=== PATIENT | male | born 1955 | race Caucasian/White ===

== ENCOUNTER 2016-06-10 05:28 | Inpatient (IN) | payer MEDICARE, MEDICAID ==
--- NOTE | 2016-06-06 08:17 | PCM.HPSURG ---
Subjective Date of Service: May 28, 2016 Referring Provider: Admitting Physician: Primary Care Physician: Carlo Arredondo MD Attending Physician: Eren Zuleta MD Chief Complaint SEE BELOW History of Present Illness Patient: Dalton Ortiz Date of : 1955 Visit Type: Pre Op Visit Date: 05/28/2016 01:00 PM This 60 year old male presents for Preop C5-7 ACDF, Allograft and & Plating. History of Present Illness: 1. Preop C5-7 ACDF, Allograft, & Plating Dalton Dodson is a 60 year old male referred by Primary Care Provider (PCP) Dr. Carlo Jones M.D. chronic pain management through [facility] ([facility] ) who presents today's date 05/28/2016 for a preoperative type of appointment concerning the decision for surgery involving C5-6, & C6-7 anterior cervical discectomy and fusion, with allograft bone 2, and present anterior cervical plating from C5-7 secondary to a diagnosis of cervical spondylosis with myelopathy & radiculopathy with related complaints of severe, intractable, and debilitating referred headache, neck spasm to the back & pain radiating to the bilateral shoulders & extremities with numbness, paresthesias, & dysesthesias & difficulty with bladder spasticity. The patient was last seen by Dr. Eren Zuleta M.D. on 03/27/2016 documenting a history sleep apnea without current CPAP use and chronic pain management through [facility] , including mild symptoms of cervical myelopathy. He is a poor historian. He reports episodes of neck pain over the past 30 years, but more severe constant pain for 2-3 months. He also reports episodes of pain between the shoulder blades, episodes of diffuse tired heavy ache in the right arm, dropping things, and jitteriness in the hands over the past 2-3 years. He also reports constant low back over the past 30 years with gradual progression. He reports a heavy tired ache in both legs, with difuse numbness and paresthesias, and a jitteriness in his legs. Cervical extension can provoke neck and low back pain. A cervical MRI showed spondylosis with cord compression at C5-6, C6-7 and small disk protrusions at C3-4 and C4-5 with a question of some subtle cord flattening. He also reports shoulder surgery on the right 2 times, and on the left 3 times. He has bilateral shoulder pain, greater on the right that can be provoked by arm movement, and this can also cause arm pain, numbness, paresthesias. He alos had bilateral CTR 2005, that relieved paresthesia in his hands. He has had recurrence of the hand paresthesias over the past 1-2 years. Although he has evidence of residual mild slowing of median nerve at the wrist bilaterally on NCV, he reports that he is not having paresthesias in his hands. He was noted to have chronic changes of radiculopathy on EMGs, bilaterally in the C7 distribution and the left in C6. He reported a recent fall in January 2016, missed last step going down stairs, fell forward hitting right knee and right arm and struck hit face, with upper lip laceration, but no loss of consciousness. The accident caused a flair up of local neck and low back pain. He was seen by his primary care physician for this injury and a Head CT was obtained that was negative. He is also being evaluated for a persistent cough which has improved and reported a chest xray. He was evaluated with a cervical and lumbar myelo/CT that demonstrated cord compression primarily at C5-6 and C6-7. The cervical spondylosis at C3-4 and C4-5 did not cause cord compression on the myelo/CT. The plan is to limit surgery to an ACDF C5-7. Dr. Eren Zuleta M.D. & patient discussed all the risks and benefits associated with the procedure as well as reasonable expectations with respect surgical outcomes & patient elected to proceed with surgery as planned. The patient denies any related complete or acute loss of control of bowel or bladder function, saddle paresthesia or anesthesia. The patient has a reported pertinent past medical, surgical, family, & social history of shoulder surgery, carpal tunnel release, obesity, obstructive sleep apnea without available CPAP, history of head trauma, possible unverified history of stroke, peripheral edema, chronic constipation, unrelated reported bladder dysfunction, frequent headaches, depression & anxiety with no other then the above known positive history &/or review of all other organ systems. The patient's related complaints have been a serious detriment to their happiness and activities of daily living. Having failed conservative treatment the patient presents today for their decision for surgery appointment involving C5-6 & C6-7 anterior cervical discectomy and fusion, with allograft bone 2, & anterior cervical plating from C5-7 for treatment of cervical spondylosis with myelopathy & radiculopathy; related to severe, intractable, and debilitating referred headache, neck spasm to the back & pain radiating to the bilateral shoulders & extremities with numbness, paresthesias, & dysesthesias & difficulty with bladder spasticity. The procedure is scheduled to be performed by Dr. Eren Zuleta M.D. on 06/10/2016. PREOPERATIVE NOTE: Discussed patient's perioperative care with attending Neurosurgeon Dr. Zuleta requiring postoperative supervision for 24-72 hours at home & the patient must also obtain a working CPAP to use as directed postoperatively in order for us to proceed with surgery as planned on 2016. [facility] Dr. Catrachito Wilson M.D. agreed to manage the patient's postoperative pain & spasm; but we will have the patient one prescription for diazepam at discharge. Problem List: Problem Description BPH (benign prostatic hypertrophy) with urinary obstruction Other obstructive and reflux uropathy Medical/Surgical/Interim History Reviewed, no change. Last detailed document date:05/28/2016. Family History: Reviewed, no changes. Last detailed document date:05/28/2016. Social History: Tobacco use reviewed. Reviewed, no changes. Last detailed document date: 05/28/2016. Allergies: Ingredient Reaction Medication Name Comment MELOXICAM renal malfunction LISINOPRIL Cough Reviewed, no changes. Review of Systems System Neg/Pos Details ENMT Negative Hearing loss. Cardio Negative Chest pain, irregular heartbeat/palpitations, leg swelling and pacemaker. Integumentary Negative Mrsa and rash. Constitutional Negative Chills and fever. Negative Dysuria, urge incontinence and urinary incontinence. Psych Negative Anxiety and depression. Respiratory Negative Dyspnea, apnea and wheezing. Neuro Negative Dizziness, headache and seizures. GI Negative Abdominal pain, constipation, diarrhea, nausea and vomiting. Eyes Negative Double vision and vision loss. MS Negative Back pain, bone/joint symptoms and muscle weakness. Endocrine Negative Weight gain and weight loss. Raheem/Lymph Negative Blood clots. Vital Signs Height Time ft in cm Last Measured Height Position % 12:46 PM 5.0 7.00 170.18 05/28/2016 Weight/BSA/BMI Time lb oz kg Context % BMI kg/m2 BSA m2 12:46 PM 274.00 124.284 42.91 Blood Pressure Time BP mm/Hg Position Side Site Method Cuff Size 12:46 PM 132/92 sitting left wrist automatic adult large Temperature/Pulse/Respiration Time Temp F Temp C Temp Site Pulse/min Pattern Resp/ min 12:46 PM 98.2 36.8 temporal 98 regular Pain Scale Time Pain Score Method 12:46 PM 5/10 Numeric Pain Intensity Scale Measured By Time Measured by 12:46 PM Jeannette Cox MA Physical Exam Exam Findings Details Comments WD/WN, male is AO x 3, cooperative & appears to be in NAD w/ language & speech that is intact & fluent. There is no evidence of recent or remote memory impairment. The patient's knowledge is appropriate for age & level of education w/ a pleasant affect & euthymic mood. Ambulates w/ no difficulty. NC/AT, PERRL, EOMI, w/o facial droop, hearing grossly intact, nostrils patent, oral cavity and pharynx normal. Neck supple, w/o LAD or thyromegaly. Heart reveals RRR w/o audible murmurs Lungs CTAB Abdomen is NT/ND decreased ROM of Cervical Spine Neg Spurlings, Positive Hoffmans, right, Neg Lhermittes Neg Tinnels, Neg Phalens, no tenderness over cubital tunnel Motor Strength: 4+/5 senior computer specialist bilaterally, other motor groups 5/5 throughout in UEs and LEs 4+/5 deltoids bilaterally, secondary to pain Sensation Intact in UEs and LEs DTRs, are 2+ in UEs and LEs Bilateral well healed scars on the wrists from carp Neg tinnels bilat No tenderness over the ulnar groove to palpation bilat Assessment/Plan # Detail Type Description 1. Assessment Cervical spondylosis with myelopathy and radiculopathy (M47.12). 2. Assessment Preoperative examination (Z01.818). Patient Plan We including your Attending Surgeon have discussed the risks and benefits associated your scheduled procedure which you have verbally acknowledged understanding including but not limited to the possibility of an outcome that we are unable to predict or was not mentioned. 1. You are scheduled for a C5-6 & C6-C7 anterior cervical discectomy and, with allograft bone 2, & anterior cervical plating from C5-[address] Eren Zuleta M.D. at [facility] on 06/10/2016. 2. Check in time is 7:30 AM. Also please ignore instructions below if told otherwise by your preadmission nurse or if you do not take the medications listed below. 3. Nothing to eat after midnight the night before surgery. You may take all of your "approved" medications with small sips of water. Remember to take your a.m. hypertension medication if it is a beta sebas and ends in "olol. Otherwise ask your doctor if you need to hold your a.m. hypertension medication. 4. No aspirin, ibuprofen, Naprosyn, or other NSAIDs starting 7 days prior to surgery. 5. Please stop Warfarin/Coumadin or other blood thinners such as Plavix, Aggrenox, or Xarelto 7 days prior to your surgical procedure and follow specific instructions from your prescribing provider. 6. Please stop Lovenox bridging in the morning one day prior to procedure. 7. Please stop Suboxone/Buprenorphine at least 4 days prior to procedure. 8. Go to the hospital today to get her preoperative testing done. Take the order form to the surgery desk on the second floor of the hospital, [facility] (main entrance next to the emergency entrance). I will notify you if there is any test results that require further workup prior to surgery. 9. Follow the instructions you were given today, use the cleansing cloths the night before as well as the morning of her surgery. 10. If you are prescribed inhalers, CPAP or BiPAP machines you use at home bring along with you to the hospital. 11. ONLY If you take medications for Diabetes: If you have an insulin pump continue lowest (typically night-time) basal rate into the a.m. If you do not have a pump check h your a.m. blood sugar and hold insulin if BS less than 100. If you are taking long-acting, intermediate acting (NPH) or 70/30 preparation : Take half on day of procedure. If you are taking ultra long-acting insulin such as glargine, Lantus either at night or in the a.m. continue as scheduled ( including day of surgery). If you take short acting regular insulin (insulin not delivered via pump) discontinue on day of procedure. 12. Please call if you have any questions before your surgery: [phone]. Today's instructions/counseling include(s) Pre-operative instructions given to the patient and or legal training representative(s) orally and in writing. 13. Our office will contact you if there are any test results that require further workup prior to surgery. 14. Please make sure that she would have supervision for 1-3 days after surgery and her CPAP will not be able to proceed with surgery. Provider Plan The patient's history and examination as well as radiological findings were reviewed with Dr. Eren Zuleta M.D. and conveyed the patient in detail. The findings are consistent with cervical spondylosis with myelopathy & radiculopathy and are most likely the cause of the patient's severe, intractable , and debilitating referred headache, neck spasm to the back & pain radiating to the bilateral shoulders & extremities with numbness, paresthesias, & dysesthesias & difficulty with bladder spasticity. The patient has failed extensive conservative treatment for this condition. The treatment options were discussed with the patient. The options include attempt to live with the condition, reattempt conservative treatment, try a pain management intervention / injection or consider a surgical intervention. We are not extremely optimistic that further conservative treatment, pain management intervention and/or injection will adequately resolve the patient's symptoms of severe, intractable, and debilitating referred headache, neck spasm to the back & pain radiating to the bilateral shoulders & extremities with numbness, paresthesias, & dysesthesias & difficulty with bladder spasticity. Therefore we recommend C5-6, & C6-7 anterior cervical discectomy and fusion, with allograft bone 2, & anterior cervical plating from C5-7. The patient was provided/offered educational materials pertaining to their diagnosis and the above discussed procedure. We discussed the risks and benefits associated with this surgery. A spine model was used to explain the nature of this type of surgery. The risk of the required anesthesia was also mentioned including but not limited to organ failure such as heart attack, pneumonia and stroke even . The risk of this type of surgery was also mentioned. Including but not limited to an unsuccessful outcome, residual symptoms, odynophagia, dysphasia or sore throat, referred or radiating posterior spinal myofascial inflammatory pain or spasm, post operative instability, instrumentation failure, sensory changes, blood loss, blood clots, wound infection, spinal cord or nerve damage, CSF or lymph leak, damage to neighboring structures such as the recurrent laryngeal nerve, perforation of the esophagus or trachea, pseudoarthrosis, adjacent level disease , contraindication to MRI, Sami's Syndrome, vision loss, voice change, resulting in temporary or permanent dysfunction, even disability, paralysis, and . The recovery of this type of surgery was also mentioned. The chances for improvement of the related cervical radiculopathy symptomology in the bilateral upper extremities at one year is 70-80%. The chances of improvement of unrelated local neck pain is 50%. This includes but is not limited to reasonable expectations for the treatment of myelopathy involving the surgical decompression of the cervical spinal cord; which will stop the progression of the patient's condition but cannot guarantee improvements in any associated physical complaints. The patient verbalized understanding all the risks and benefits, knowing that it is impossible to predict or guarantee every surgical outcome; and would like to proceed with the above discussed procedure anyways. Surgery is scheduled for 06/02/2016 The standard [facility] preoperative screening tests, medicine restrictions, and logistical protocols apply. Any preoperative testing is within normal limits to undergo the above discussed procedure unless otherwise noted in the medical record. PREOPERATIVE NOTE: Discussed patient's perioperative care with attending Neurosurgeon Dr. Zuleta requiring postoperative supervision for 24-72 hours at home & the patient must also obtain a working CPAP to use as directed postoperatively in order for us to proceed with surgery as planned on 2016. [facility] Dr. Catrachito Wilson M.D. agreed to manage the patient's postoperative pain & spasm; but we will have the patient one prescription for diazepam at discharge. Clinical Guidelines (Reviewed, no changes:Last detailed document date:) Medications (added, continued or stopped this visit): Start Date Medication Directions Stop Date citalopram 40 mg tablet take 1 tablet by oral route every day clonidine HCl 0.1 mg tablet take 1 tablet by oral route 2 times every day hydrocodone 5 mg-acetaminophen 325 mg tablet take 1 tablet by oral route every 6 hours as needed for pain levocetirizine 5 mg tablet take 1 tablet by oral route every day in the evening omeprazole 20 mg capsule,delayed release take 1 capsule by oral route every day before a meal quetiapine 50 mg tablet take 1 tablet by oral route 2 times every day Sinemet 10 mg-100 mg tablet take 1 tablet by oral route 3 times every day 07/24/2015 tamsulosin 0.4 mg capsule take 1 capsule by oral route every bedtime 11/28/2015 Trokendi XR 50 mg capsule, extended release take 1 capsule by oral route every day Counseling/Educational Factors: Counseling / educational factors reviewed. Counseling / educational factors reviewed. This is a visit of 60 minutes. 50 minutes were spent counseling. The patient was checked out at 4:41 PM. This document may have been created using voice recognition software or other electronic means and may contain inadvertent tray drier errors. Provider: Jeronimo VINES 05/28/2016 04:44 PM Document generated by: Jeronimo Lentz 05/28/2016 04:44 PM CC Providers: Carlo Arredondo [address] [place] [address]- Chip Jones [address] [facility] [address] [place] [address]- Sumit Wallaceman [address] [place] [address]- Carlo Arredondo [address] [place] [address]- [address] [place] [address] w rex brooks i saida i carin s Debbi o reena g Allergy Allergies: Coded Allergies: lisinopril (Verified Allergy, Intermediate, 03/13/16) Social History Hx Alcohol Use: Yes Hx Substance Use: No PMH HEENT History History of ENT Problems?: No Cardiovascular History History of Heart Problems?: No Respiratory History of Respiratory Problem: No Neurological History Hx Neurologic Problems?: Yes Neurological History: Positive for:: Dizziness Headaches Gastrointestinal History HX of GI Problems?: No Musculoskeletal History Musculoskeletal History: Positive for:: Back Injury Psycho Social History Hx of Psycho/Social Problems?: Yes Psycho Social History: Positive for:: Hx Depression Other History Hx Any Other Health Problems?: No Other History: Denies:: Hospitalization Thyroid Disease Diabetes: No Social History Hx Alcohol Use: YesHx Substance Use: No Jeronimo Lentz PA-C Jun 06, 2016 08:17
[~2016-06-10] VITALS: Ht 170.2 cm; Wt 120.9 kg
[2016-06-10] VITALS (14 sets, daily range): BP systolic 108–153; BP diastolic 71–92; PULSE 90–117; RESP 10–20; O2SAT 96–100
[2016-06-10] MEDS: Lactated Ringer's 1,000 ML IV SCH ×4 (05:00→11:44)
[~2016-06-10 05:28] MED LIST: CITA40TA13 PO; CLON0.1T PO; HYDR-4003 PO; LEVO5TAB13 PO; OMEP20CA11 PO; QUET50TA55 PO; TAMS0.4C98 PO; TOPI50CA PO; [UNRECOGNIZED DRUG - CODE] PO
[2016-06-10] MEDS ORDERED: Bacitracin 50,000 unit Inj IRRIGATION SCH (06:00)
[2016-06-10] MEDS ORDERED: Thrombin Powder 5,000 Unit TOPICAL SCH (06:00)
[2016-06-10] MEDS: CeFAZolin Inj 3 GM in IV Premix IV SCH ×2 (06:00→07:36)
--- NOTE | 2016-06-10 06:39 | PCM.HPANE ---
Patient Data Surgeon Admitting Provider: Attending Provider:Eren Zuleta MD Primary Care Physician:Carlo Arredondo MD Other Provider:Angela Yangingham Anesthesia Reason for Visit Cervical Spondylosis With Myelopathy Ht/WT & BMI Height (Feet): 5 Height (Inches): 7.00 Weight (Kilograms): 122.9 Body Mass Index 42.00 Allergies Coded Allergies: lisinopril (Verified Allergy, Intermediate, 03/13/16) meloxicam (Verified Allergy, Unknown, renal malfunction, 06/06/16) Past Anesthesia History Anesthesia History: Denies:: Abnormal Airway, Anesthesia Reactions, Difficult Intubation, Fam Anesthesia Reaction Diabetes History Hx Diabetes?: No Current Bedside Blood Glucose: 90 MRSA MRSA: No Medications Hypertension Medication: No Home Meds Incl Beta Erika: No Reported Medications Topiramate ER (Trokendi XR)50 Mg [id number] Mg PO DAILY 03/12/16 Levocetirizine Dihydrochloride 5 Mg Tablet5 Mg PO DAILY 03/12/16 Tamsulosin (Flomax)0.4 Mg Capsule0.4 Mg PO HS Ref 0 03/06/16 Citalopram 40 Mg [id number] Mg PO DAILY 30 Days Ref 0 03/06/16 Hydrocodone-Acetaminophen 5-325 mg 1 Each Tablet1 Tablet PO Q6H PRN For Pain Ref 0 03/06/16 Carbidopa/Levodopa 10-100 mg (Sinemet 10-100 mg)1 Each Tablet1 Tablet PO TID 03/06/16 Omeprazole 20 Mg Capsule.dr20 Mg PO DAILY Ref 0 03/06/16 Clonidine 0.1 Mg Tablet0.1 Mg PO BID Ref 0 03/06/16 Quetiapine Fumarate 50 Mg Iuubin88 Mg PO BID Ref 0 03/06/16 Discontinued Reported Medications Pramipexole Dihydrochloride 0.125 Mg Tablet0.125 Mg PO HS 03/06/16 Simvastatin 20 Mg [id number] Mg PO HS Ref 0 03/06/16 History History of ENT Problems?: No HEENT History: Denies:: Abnormal Airway Cataracts Difficult Intubation Dysphagia Glaucoma Sinus Problem TMJ Denture Type: Full- Upper Hx of Heart Problems?: No Cardiovascular History: Denies:: Chest Pain Hypertension Irregular Heartbeat Hx of Respiratory Problem?: Yes Respiratory History: Positive for:: Use of C-PAP Machine Denies:: Asthma COPD Cough Emphysema Oxygen Administration Pneumonia Tuberculosis Use of Inhalers / NEBS Hx Neurologic Problems?: Yes Neurological History: Positive for:: CVA (1996, no residual deficits at this time) Dizziness Headaches Denies:: Multiple Sclerosis Parkinson's Disease Seizures Other Neurological Pertinent: hx of concussion 30 years ago- with loss of consciousness- headaches since that time Hx of GI Problems?: Yes Gastrointestinal History: Positive for:: Gastroesphageal Reflux Heartburn Denies:: Gall Bladder Disease Hepatitis Hiatal Hernia Liver Disease Hx of Problems?: No Genitourinary History: Denies:: Kidney Stones Urinary Tract Infection Male Hx: Positive for:: Prostate Problems (BPH) Skin History: Denies:: History Skin Disorders? Pressure Ulcers Hx Musculoskeletal Problems?: Yes Musculoskeletal History: Positive for:: Back Injury (cervical neck current admission problem) Fibromyalgia Musculoskeletal Trauma (hx of 5 bilateral shoulder surgery no replacements yet ) Osteoarthritis Denies:: Joint Replacement Systemic Lupus Hx of Psycho/Social Problems?: Yes Psycho Social History: Positive for:: Hx Depression Hx Surgeries?: Yes (shoulder surgery x 5, 3 foot, wrist ) Hx Any Other Health Problems?: Yes Other History: Denies:: Cancer Hospitalization Thyroid Disease History Blood Transfusions: Positive for:: Accept Blood Products? Denies:: Blood Transfusions Hx Diabetes: NoBedside Blood Glucose: 90 Hx Alcohol Use: YesAlcoholic Drinks Per Day: beer 2 dailyHx Substance Use: No Smoking Status: Former Smoker Have You Smoked inLast 12 mo: No (quit 1980) Stop/Bang S-Snoring: Do You Snore Loudly: No T-Tired: feel tired, fatigued: Yes O-Obsered: Observed not breath: Yes P-Blood Pressure: treated: No B- Body Mass Index > 35 kg/m2: Yes A- Age over 50: Yes N- Neck Large Circumference: Yes G- Gender Male: Yes ROSEANNA Total Score: 6 ROSEANNA Risk Assessment: High Risk, =/>3 Yes ROSEANNA Category 2: Yes Risk Assessment Category Category 1A: Patient has history of documented sleep apnea, and HAS NOT received any narcotic, sedative or anesthesia administration during this stay. Category 1B: Patient has history of documented sleep apnea, and HAS received any narcotic , sedative or anesthesia administration during this stay Category 2: Patient has SUSPECTED Obstructive Sleep Apnea, and HAS received any narcotic , sedative or anesthesia administration during this stay. Category 3: Patient has SUSPECTED Obstructive Sleep Apnea and HAS NOT received narcotic, sedative or anesthesia administration during this stay. Category 4: Outpatient in Procedural Areas with known sleep apnea or who screen positive for High Risk via the STOP/BANG questionnaire. Exam Exam Vital Signs Vital Signs Date Time Temp Pulse Resp B/P Pulse Ox O2 Delivery O2 Flow Rate FiO2 06/10/16 06:01 36.1 90 16 116/75 99 Room Air General Appearance: Alert, Oriented X3, Cooperative, No Acute Distress HEENT/AIRWAY: MP 2 Lungs: Clear to Auscultation, Normal Air Movement Heart: Exam Unremarkable, Regular Rate/Rhythm, No Murmurs/Rubs/Gallops Additional Information upper denture Meds/Labs/Diagnostics Admission Meds Current Medications Lactated Ringer's (Lr) 1,000 ml @ 120 mls/hr Q8H20M IV Last administered on t 05:16; Start 06/10/16 at 05:00; Stop 06/10/16 at 13:19 Bedside Blood Glucose: 90 Plan Impression Patient chart reviewed, patient interviewed and anesthestic plan with risks, benefits, and alternatives discussed, and informed consent obtained. NPO Status: 06/09 at 2100 ASA Physical Status: ASA3 Severe Disease Anesthetic Plan: GA Bene/Risks/Altern/Consents: Yes HP Complete Prior to Induction: Yes Jaqui Ramírez MD Jun 10, 2016 06:39
[2016-06-10] MEDS ORDERED: Bupivacaine-MPF 0.5% 30 mL Inj INFILTRATE ONE (08:02)
[2016-06-10] MEDS ORDERED: Labetalol 5 mg/mL 4 mL Inj IV PRN (08:35)
[2016-06-10] MEDS ORDERED: Dexamethasone 4 mg/mL Inj IVPUSH PRN (08:35)
[2016-06-10] MEDS ORDERED: MetoCLOpramide 5 mg/mL 2 mL Inj IVPUSH PRN (08:35)
[2016-06-10] MEDS ORDERED: Lactated Ringer's 500 ML IV PRN (08:35)
[2016-06-10] MEDS ORDERED: Atropine 0.4 mg/mL Inj IVPUSH PRN (08:35)
[2016-06-10] MEDS ORDERED: Phenylephrine 10,000 mCg/mL Inj IVPUSH PRN (08:35)
[2016-06-10] MEDS ORDERED: fentaNYL-PF 50 mCg/mL 2 mL Inj IVPUSH PRN (08:35)
[2016-06-10] MEDS ORDERED: HYDROmorphone 1 mg/mL Inj IVPUSH PRN ×2 (08:35→13:40)
[2016-06-10] MEDS ORDERED: EPHEDrine Sulfate 50 mg/mL Inj IVPUSH PRN (08:35)
[2016-06-10] MEDS ORDERED: Lactated Ringer's 1,000 ML IV SCH (08:35)
[2016-06-10] MEDS ORDERED: Ondansetron 2 mg/mL 2 mL Inj IVPUSH PRN ×2 (08:35→13:40)
--- NOTE | 2016-06-10 09:27 | DRSVH ---
PROCEDURE: X-RAY CERVICAL SPINE, 1 VIEW INDICATIONS: CERVICAL SPINE SURGERY TECHNIQUE: Single lateral view of the cervical spine acquired. COMPARISON: [facility], CR, XR CERVICAL SPINE 1VW, 06/10/2016, 7:49. FINDINGS: Bones: Intraoperative lateral view of the cervical spine demonstrates a screw within the superior asp ect of C5 and the screw within the superior aspect of C6, entering anteriorly. There is a surgical pr obe projecting anterior to C4. Soft tissues: No prevertebral soft tissue swelling. IMPRESSION: Anterior surgical screws the level of superior C5 and superior C6 vertebral bodies. The r esult was discussed with Dr. Zuleta in OR prior to dictation. Dictated by: Nadja Bella M.D. on 06/10/2016 at 9:20 Approved by: Nadja Bella M.D. on 06/10/2016 at 9:26
--- NOTE | 2016-06-10 09:29 | DRSVH ---
PROCEDURE: X-RAY CERVICAL SPINE, 1 VIEW INDICATIONS: CERVICAL SPONDYLOSIS WITH MYELOPATHY TECHNIQUE: Single lateral view of the cervical spine acquired. COMPARISON: None. FINDINGS: Intraoperative lateral view of the cervical spine demonstrates 2 surgical probes, one proje cting to the level of C3-C4 and one projecting to the level of C4-C5. IMPRESSION: Surgical probes projecting to the level of C3-C4 and C4-C5. Dictated by: Nadja Bella M.D. on 06/10/2016 at 9:26 Approved by: Nadja Bella M.D. on 06/10/2016 at 9:28
[2016-06-10 13:01] LABS: APPEARANCE,URINE HAZY (CLEAR,HAZY); COLOR,URINE YELLOW (YELLOW); OCCULT BLOOD,URINE NEGATIVE (NEGATIVE); PH,URINE 5.5 (5.0-8.0); UROBILINOGEN,URINE NORMAL (NORMAL)
[2016-06-10] MEDS ORDERED: Benzocaine (Hurricaine) 20% Unit-Dose Spray MUC_MEMBRM PRN (13:25)
[2016-06-10] MEDS ORDERED: Magnesium Hydroxide 10 mL Oral Concentration PO PRN (13:40)
[2016-06-10] MEDS ORDERED: Polyethylene Glycol (PEG) 17 Gm Powder PO PRN (13:40)
[2016-06-10] MEDS ORDERED: Sodium Biphos-Phos 133 mL Enema RECTAL PRN (13:40)
[2016-06-10] MEDS ORDERED: Senna-Docusate 8.6-50 mg Tablet PO PRN (13:40)
--- NOTE | 2016-06-10 13:44 | PCM.ANEP1 ---
Post Anesthesia Phase 1 PACU Phase 1 Assessment Date of Service: May 28, 2016 Vital Signs Vital Signs Date Time Temp Pulse Resp B/P Pulse Ox O2 Delivery O2 Flow Rate FiO2 06/10/16 13:25 104 12 135/86 99 Simple Mask 8 06/10/16 13:10 102 17 134/78 100 Simple Mask 8 06/10/16 13:05 117 18 153/90 99 Simple Mask 8 06/10/16 13:00 107 19 151/92 100 Simple Mask 8 06/10/16 12:55 104 20 133/82 100 Simple Mask 8 06/10/16 12:51 36.1 104 19 139/90 99 Simple Mask 8 06/10/16 07:02 CPAP/BIPAP 06/10/16 06:01 36.1 90 16 116/75 99 Room Air Anesthetic Administered: GA Level of Alertness: Awake, talking MITCHELL's with Equal Strength: Yes Pain: No Nausea or Vomiting: No Oxygen Delivery: Simple Mask Lungs: Clear to Auscultation, Normal Air Movement Jaqui Ramírez MD Jun 10, 2016 13:44
--- NOTE | 2016-06-10 13:44 | PCM.ANEP2 ---
Post Anesthesia Evaluation ASA/CMS Post Anesthesia VS in Patient's Normal Range?: Yes Resp Stable; Airway Patent?: Yes CV Function & Hydration Stable: Yes Mental Status Recovered?: Yes Pain control Satisfactory?: Yes N/V Control Satisfactory?: Yes Jaqui Ramírez MD Jun 10, 2016 13:44
--- NOTE | 2016-06-10 14:10 | OP ---
[address] [address] OPERATIVE REPORT PATIENT: CAYDEN SINCLAIR : 1955 MR#: [id number] ADMIT: 06/10/2016 JOB ID: [id number] DATE OF SURGERY: 06/10/2016 PREOPERATIVE DIAGNOSIS(ES): Cervical spondylosis with myelopathy. POSTOPERATIVE DIAGNOSIS(ES): Cervical spondylosis with myelopathy. PROCEDURE: C5 through 7 anterior cervical diskectomy and fusion using allograft bone and C5 through 7 anterior plating. SURGEON: Eren Zuleta MD RETAIL SHIFT SUPERVISOR: GERARDO Patino ANESTHESIA: General with Dr. Ramírez. ESTIMATED BLOOD LOSS: 75 cc. DRAINS: One VICTOR HUGO. COMPLICATIONS: None. COMPLICATIONS: None. INDICATIONS: This patient presented with symptoms of cervical myelopathy. He was found to have cervical spondylosis disk disease with disk osteophytes causing cord compression at C5-6 and C6-7. PROCEDURE IN DETAIL: The patient was taken to the operating room on June 10, 2016 placed under general anesthesia, placed supine with his head supported on a donut, prepped and draped sterile. The right side of the neck was infiltrated with 0.5% plain Marcaine. An incision was made transversely from the midline to the sternocleidomastoid at the level of C5. The incision was carried down sharply through the skin and subcutaneous tissues and hemostasis was achieved with the monopolar. Weitlaner retractors were placed. The platysma was incised. Blunt dissection was used to create a plane just medial to the sternocleidomastoid. The carotid was palpated and mobilized laterally. The esophagus and trachea were mobilized medially with an appendectomy retractor. The blunt dissection was carried into the prevertebral space. Bent spinal needles were placed at a C3-4 osteophyte and at the C4-5 level. The position of the markers was noted with a lateral intraoperative x-ray of the cervical spine. The markers were removed and the C4-5 level was marked with the monopolar. It was possible to count down to the C5-6 and C6-7 level. Because this patient had large osteophytes obstructing the disk space, this made it difficult to delineate the C5-6 and C6-7 level. For this reason, I had an additional lateral x-ray taken once the [place] pins were placed into the vertebral body of C5 and C6. The location of the [place] pins was confirmed with x-ray verifying that I was at the appropriate level. The deep retractors were then placed with the blades beneath the longus coli musculature at C5-6. The disk clinical investigator posts were placed at C5-6. The microscope was brought into position. This patient had a diskectomy and fusion first performed at C5-6, then the retractors were replaced at the C6-7 level and the patient had a diskectomy and fusion at the C6-7 level. Both levels were done in the same manner. First the annulus was incised with the monopolar. Then, the disk material was removed piecemeal with the curette. The anterior and posterior osteophytes were removed with the high-speed bur and the high-speed bur was used to widen the disk space at both levels. The posterior longitudinal ligament was resected using curette and the Kerrison punch to decompress the central canal. Following the decompression, the rasp set was used to prepare for the bone graft. A 9 mm allograft bone was placed at C5-6 that tapered to 7 mm. An 11 mm donor bone graft was placed at C6-7. This bone graft tapered to 9 mm. Prior to the placement of the bone graft, the disk space was irrigated and inspected for hemostasis. Hemostasis was achieved with the use of Gelfoam which was then removed. Following the placement of the bone graft, a plate was selected to span the C5 through 7 levels. This is a dynamic titanium plate, Esteban plate manufactured by [employer]. The plate was secured to the vertebral bodies of C5, C6 and C7 with self-drilling 14 mm fixed angle screws. The screws were all locked into position and the spacing bars were removed from the Esteban plate. At this point, the wound was again irrigated. Hemostasis was achieved with the bipolar electrocautery. A VICTOR HUGO drain was placed at the base of the wound, brought out through a separate stab wound, and hooked up to bulb suction. The platysma was approximated with interrupted sutures of 2-0 Vicryl and the skin was closed with 4-0 Vicryl using a subcuticular stitch. Steri-Strips were applied to the skin, which was dressed with Telfa, gauze and tape.
[2016-06-10] MEDS ORDERED: Rocuronium 10 mg/mL 5 mL Inj ONE (14:49)
[2016-06-10] MEDS ORDERED: Dexamethasone 4 mg/mL Inj ONE (14:49)
[2016-06-10] MEDS ORDERED: fentaNYL-PF 50 mCg/mL 2 mL Inj ONE (14:49)
[2016-06-10] MEDS ORDERED: Phenylephrine/NS 100 mCg/mL 10 mL Syringe IVPUSH ONE (14:49)
[2016-06-10] MEDS ORDERED: Propofol 10,000 mCg/mL 20 mL Inj ONE (14:49)
[2016-06-10] MEDS ORDERED: Succinylcholine Chloride 20 mg/mL 5 mL Inj ONE (14:49)
[2016-06-10] MEDS ORDERED: Ondansetron 2 mg/mL 2 mL Inj ONE (14:49)
[2016-06-10] MEDS ORDERED: Glycopyrrolate 0.2 MG/ML 1mL Inj ONE (14:49)
[2016-06-10] MEDS ORDERED: Acetaminophen IV 1,000 MG in IV Premix 1 EACH IV SCH (15:30)
[2016-06-10] MEDS: 0.9% Sodium Chloride 1,000 ML IV SCH (16:03)
[2016-06-10] MEDS: Dexamethasone 4 mg/mL Inj IVPUSH SCH ×2 (16:09→21:31)
[2016-06-10] MEDS: CARBIDOPA LEVODOPA PO SCH ×2 (16:11→21:30)
--- NOTE | 2016-06-10 16:11 | NUR ---
Evaluation completed. Please go to "Notes" then click on "Assessments and Notes" (bottom left corner of screen). Then select appropriate discipline tab on top of screen.
[2016-06-10] MEDS: CeFAZolin Inj 3 GM in IV Premix 1 EACH IV SCH ×2 (16:13→23:35)
[2016-06-10] MEDS: hydrOXYzine Pamoate 25 mg Capsule PO PRN (16:35)
--- NOTE | 2016-06-10 18:25 | NUR ---
Post Op patient received to room 1009 s/p cervical discectomy . Drsg to ant neck noted cdi, VICTOR HUGO patent . Patient drowsy but awakens and follows commands . Sanitarian Inspector + equal, patient able to lift arms off bed but shaky and slight weak. patient denies any numbness or tingling to extremities. patient rate pain 10/10 oxycodone and Vistaril given. Patient taking po fluids slowly .
[2016-06-10] MEDS: Senna-Docusate 8.6-50 mg Tablet PO SCH (21:30)
[2016-06-10] MEDS: cloNIDine 0.1 mg Tablet PO SCH (21:31)
[2016-06-11 00:25] VITALS: BP 144/82; PULSE 87; RESP 20; O2SAT 98
[2016-06-11] MEDS: Acetaminophen IV 1,000 MG in IV Premix 1 EACH IV SCH ×2 (00:49→06:24)
[2016-06-11] MEDS: 0.9% Sodium Chloride 1,000 ML IV SCH ×2 (02:25→06:16)
[2016-06-11] MEDS: Dexamethasone 4 mg/mL Inj IVPUSH SCH ×2 (03:19→08:23)
[2016-06-11 04:35] VITALS: BP 148/89; PULSE 98; RESP 20; O2SAT 97
--- NOTE | 2016-06-11 04:43 | NUR ---
CPAP Patient using CPAP at night with 2L O2 at 96%. Patient AOX3. VICTOR HUGO drain patent and draining. Soft collar on. HOB at 30 degrees. Good sensation in extremities, merchandising director firm.
[2016-06-11] MEDS: hydrOXYzine Pamoate 25 mg Capsule PO PRN (06:19)
[2016-06-11] MEDS ORDERED: Pantoprazole 20 mg ER24 Tablet PO SCH (06:30)
[2016-06-11] MEDS: Senna-Docusate 8.6-50 mg Tablet PO SCH (08:23)
[2016-06-11] MEDS: cloNIDine 0.1 mg Tablet PO SCH (08:26)
[2016-06-11] MEDS: CARBIDOPA LEVODOPA PO SCH (08:30)
[2016-06-11] MEDS ORDERED: TOPAMAX 50 MG PO SCH (08:30)
[2016-06-11] MEDS ORDERED: DIAZ5TAB3 PO (09:00)
--- NOTE | 2016-06-11 09:50 | NUR ---
Evaluation completed. Please go to "Notes" then click on "Assessments and Notes" (bottom left corner of screen). Then select appropriate discipline tab on top of screen.
--- NOTE | 2016-06-11 09:56 | PCM.DC.SUR ---
Discharge Summary Date of Service: Jun 11, 2016 Date of Hospital Admission: Jun 10, 2016 at 14:48 Date of Operation(s): 06/10/2016 Date of Discharge: 06/11/2016 Diagnosis at Time of Discharge Status post C5-6 & C6-7 anterior cervical discectomy and fusion, with allograft bone 2, absent anterior cervical plating from C5-7 Problems: Operation C5-6 & C6-7 anterior cervical discectomy and fusion, with allograft bone 2, absent anterior cervical plating from C5-7 Brief History and Physical: Patient: Dalton Ortiz Date of : 1955 Visit Type: Pre Op Visit Date: 05/28/2016 01:00 PM This 60 year old male presents for Preop C5-7 ACDF, Allograft and & Plating. History of Present Illness: 1. Preop C5-7 ACDF, Allograft, & Plating Dalton Dodson is a 60 year old male referred by Primary Care Provider (PCP) Dr. Carlo Jones M.D. chronic pain management through [facility] ([facility] ) who presents today's date 05/28/2016 for a preoperative type of appointment concerning the decision for surgery involving C5-6, & C6-7 anterior cervical discectomy and fusion, with allograft bone 2, and present anterior cervical plating from C5-7 secondary to a diagnosis of cervical spondylosis with myelopathy & radiculopathy with related complaints of severe, intractable, and debilitating referred headache, neck spasm to the back & pain radiating to the bilateral shoulders & extremities with numbness, paresthesias, & dysesthesias & difficulty with bladder spasticity. The patient was last seen by Dr. Eren Zuleta M.D. on 03/27/2016 documenting a history sleep apnea without current CPAP use and chronic pain management through [facility] , including mild symptoms of cervical myelopathy. He is a poor historian. He reports episodes of neck pain over the past 30 years, but more severe constant pain for 2-3 months. He also reports episodes of pain between the shoulder blades, episodes of diffuse tired heavy ache in the right arm, dropping things, and jitteriness in the hands over the past 2-3 years. He also reports constant low back over the past 30 years with gradual progression. He reports a heavy tired ache in both legs, with difuse numbness and paresthesias, and a jitteriness in his legs. Cervical extension can provoke neck and low back pain. A cervical MRI showed spondylosis with cord compression at C5-6, C6-7 and small disk protrusions at C3-4 and C4-5 with a question of some subtle cord flattening. He also reports shoulder surgery on the right 2 times, and on the left 3 times. He has bilateral shoulder pain, greater on the right that can be provoked by arm movement, and this can also cause arm pain, numbness, paresthesias. He alos had bilateral CTR 2005, that relieved paresthesia in his hands. He has had recurrence of the hand paresthesias over the past 1-2 years. Although he has evidence of residual mild slowing of median nerve at the wrist bilaterally on NCV, he reports that he is not having paresthesias in his hands. He was noted to have chronic changes of radiculopathy on EMGs, bilaterally in the C7 distribution and the left in C6. He reported a recent fall in January 2016, missed last step going down stairs, fell forward hitting right knee and right arm and struck hit face, with upper lip laceration, but no loss of consciousness. The accident caused a flair up of local neck and low back pain. He was seen by his primary care physician for this injury and a Head CT was obtained that was negative. He is also being evaluated for a persistent cough which has improved and reported a chest xray. He was evaluated with a cervical and lumbar myelo/CT that demonstrated cord compression primarily at C5-6 and C6-7. The cervical spondylosis at C3-4 and C4-5 did not cause cord compression on the myelo/CT. The plan is to limit surgery to an ACDF C5-7. Dr. Eren Zuleta M.D. & patient discussed all the risks and benefits associated with the procedure as well as reasonable expectations with respect surgical outcomes & patient elected to proceed with surgery as planned. The patient denies any related complete or acute loss of control of bowel or bladder function, saddle paresthesia or anesthesia. The patient has a reported pertinent past medical, surgical, family, & social history of shoulder surgery, carpal tunnel release, obesity, obstructive sleep apnea without available CPAP, history of head trauma, possible unverified history of stroke, peripheral edema, chronic constipation, unrelated reported bladder dysfunction, frequent headaches, depression & anxiety with no other then the above known positive history &/or review of all other organ systems. The patient's related complaints have been a serious detriment to their happiness and activities of daily living. Having failed conservative treatment the patient presents today for their decision for surgery appointment involving C5-6 & C6-7 anterior cervical discectomy and fusion, with allograft bone 2, & anterior cervical plating from C5-7 for treatment of cervical spondylosis with myelopathy & radiculopathy; related to severe, intractable, and debilitating referred headache, neck spasm to the back & pain radiating to the bilateral shoulders & extremities with numbness, paresthesias, & dysesthesias & difficulty with bladder spasticity. The procedure is scheduled to be performed by Dr. Eren Zuleta M.D. on 06/10/2016. PREOPERATIVE NOTE: Discussed patient's perioperative care with attending Neurosurgeon Dr. Zuleta requiring postoperative supervision for 24-72 hours at home & the patient must also obtain a working CPAP to use as directed postoperatively in order for us to proceed with surgery as planned on 2016. [facility] Dr. Catrachito Wilson M.D. agreed to manage the patient's postoperative pain & spasm; but we will have the patient one prescription for diazepam at discharge. Problem List: Problem Description BPH (benign prostatic hypertrophy) with urinary obstruction Other obstructive and reflux uropathy Medical/Surgical/Interim History Reviewed, no change. Last detailed document date:05/28/2016. Family History: Reviewed, no changes. Last detailed document date:05/28/2016. Social History: Tobacco use reviewed. Reviewed, no changes. Last detailed document date: 05/28/2016. Allergies: Ingredient Reaction Medication Name Comment MELOXICAM renal malfunction LISINOPRIL Cough Reviewed, no changes. Review of Systems System Neg/Pos Details ENMT Negative Hearing loss. Cardio Negative Chest pain, irregular heartbeat/palpitations, leg swelling and pacemaker. Integumentary Negative Mrsa and rash. Constitutional Negative Chills and fever. Negative Dysuria, urge incontinence and urinary incontinence. Psych Negative Anxiety and depression. Respiratory Negative Dyspnea, apnea and wheezing. Neuro Negative Dizziness, headache and seizures. GI Negative Abdominal pain, constipation, diarrhea, nausea and vomiting. Eyes Negative Double vision and vision loss. MS Negative Back pain, bone/joint symptoms and muscle weakness. Endocrine Negative Weight gain and weight loss. Raheem/Lymph Negative Blood clots. Vital Signs Height Time ft in cm Last Measured Height Position % 12:46 PM 5.0 7.00 170.18 05/28/2016 Weight/BSA/BMI Time lb oz kg Context % BMI kg/m2 BSA m2 12:46 PM 274.00 124.284 42.91 Blood Pressure Time BP mm/Hg Position Side Site Method Cuff Size 12:46 PM 132/92 sitting left wrist automatic adult large Temperature/Pulse/Respiration Time Temp F Temp C Temp Site Pulse/min Pattern Resp/ min 12:46 PM 98.2 36.8 temporal 98 regular Pain Scale Time Pain Score Method 12:46 PM 5/10 Numeric Pain Intensity Scale Measured By Time Measured by 12:46 PM Jeannette Cox MA Physical Exam Exam Findings Details Comments WD/WN, male is AO x 3, cooperative & appears to be in NAD w/ language & speech that is intact & fluent. There is no evidence of recent or remote memory impairment. The patient's knowledge is appropriate for age & level of education w/ a pleasant affect & euthymic mood. Ambulates w/ no difficulty. NC/AT, PERRL, EOMI, w/o facial droop, hearing grossly intact, nostrils patent, oral cavity and pharynx normal. Neck supple, w/o LAD or thyromegaly. Heart reveals RRR w/o audible murmurs Lungs CTAB Abdomen is NT/ND decreased ROM of Cervical Spine Neg Spurlings, Positive Hoffmans, right, Neg Lhermittes Neg Tinnels, Neg Phalens, no tenderness over cubital tunnel Motor Strength: 4+/5 stain sprayer bilaterally, other motor groups 5/5 throughout in UEs and LEs 4+/5 deltoids bilaterally, secondary to pain Sensation Intact in UEs and LEs DTRs, are 2+ in UEs and LEs Bilateral well healed scars on the wrists from carp Neg tinnels bilat No tenderness over the ulnar groove to palpation bilat Assessment/Plan # Detail Type Description 1. Assessment Cervical spondylosis with myelopathy and radiculopathy (M47.12). 2. Assessment Preoperative examination (Z01.818). Patient Plan We including your Attending Surgeon have discussed the risks and benefits associated your scheduled procedure which you have verbally acknowledged understanding including but not limited to the possibility of an outcome that we are unable to predict or was not mentioned. 1. You are scheduled for a C5-6 & C6-C7 anterior cervical discectomy and, with allograft bone 2, & anterior cervical plating from C5-[address] Eren Zuleta M.D. at [facility] on 06/10/2016. 2. Check in time is 7:30 AM. Also please ignore instructions below if told otherwise by your preadmission nurse or if you do not take the medications listed below. 3. Nothing to eat after midnight the night before surgery. You may take all of your "approved" medications with small sips of water. Remember to take your a.m. hypertension medication if it is a beta sebas and ends in "olol. Otherwise ask your doctor if you need to hold your a.m. hypertension medication. 4. No aspirin, ibuprofen, Naprosyn, or other NSAIDs starting 7 days prior to surgery. 5. Please stop Warfarin/Coumadin or other blood thinners such as Plavix, Aggrenox, or Xarelto 7 days prior to your surgical procedure and follow specific instructions from your prescribing provider. 6. Please stop Lovenox bridging in the morning one day prior to procedure. 7. Please stop Suboxone/Buprenorphine at least 4 days prior to procedure. 8. Go to the hospital today to get her preoperative testing done. Take the order form to the surgery desk on the second floor of the hospital, [facility] (main entrance next to the emergency entrance). I will notify you if there is any test results that require further workup prior to surgery. 9. Follow the instructions you were given today, use the cleansing cloths the night before as well as the morning of her surgery. 10. If you are prescribed inhalers, CPAP or BiPAP machines you use at home bring along with you to the hospital. 11. ONLY If you take medications for Diabetes: If you have an insulin pump continue lowest (typically night-time) basal rate into the a.m. If you do not have a pump check h your a.m. blood sugar and hold insulin if BS less than 100. If you are taking long-acting, intermediate acting (NPH) or 70/30 preparation : Take half on day of procedure. If you are taking ultra long-acting insulin such as glargine, Lantus either at night or in the a.m. continue as scheduled ( including day of surgery). If you take short acting regular insulin (insulin not delivered via pump) discontinue on day of procedure. 12. Please call if you have any questions before your surgery: [phone]. Today's instructions/counseling include(s) Pre-operative instructions given to the patient and or legal product support sales representative(s) orally and in writing. 13. Our office will contact you if there are any test results that require further workup prior to surgery. 14. Please make sure that she would have supervision for 1-3 days after surgery and her CPAP will not be able to proceed with surgery. Provider Plan The patient's history and examination as well as radiological findings were reviewed with Dr. Eren Zuleta M.D. and conveyed the patient in detail. The findings are consistent with cervical spondylosis with myelopathy & radiculopathy and are most likely the cause of the patient's severe, intractable , and debilitating referred headache, neck spasm to the back & pain radiating to the bilateral shoulders & extremities with numbness, paresthesias, & dysesthesias & difficulty with bladder spasticity. The patient has failed extensive conservative treatment for this condition. The treatment options were discussed with the patient. The options include attempt to live with the condition, reattempt conservative treatment, try a pain management intervention / injection or consider a surgical intervention. We are not extremely optimistic that further conservative treatment, pain management intervention and/or injection will adequately resolve the patient's symptoms of severe, intractable, and debilitating referred headache, neck spasm to the back & pain radiating to the bilateral shoulders & extremities with numbness, paresthesias, & dysesthesias & difficulty with bladder spasticity. Therefore we recommend C5-6, & C6-7 anterior cervical discectomy and fusion, with allograft bone 2, & anterior cervical plating from C5-7. The patient was provided/offered educational materials pertaining to their diagnosis and the above discussed procedure. We discussed the risks and benefits associated with this surgery. A spine model was used to explain the nature of this type of surgery. The risk of the required anesthesia was also mentioned including but not limited to organ failure such as heart attack, pneumonia and stroke even . The risk of this type of surgery was also mentioned. Including but not limited to an unsuccessful outcome, residual symptoms, odynophagia, dysphasia or sore throat, referred or radiating posterior spinal myofascial inflammatory pain or spasm, post operative instability, instrumentation failure, sensory changes, blood loss, blood clots, wound infection, spinal cord or nerve damage, CSF or lymph leak, damage to neighboring structures such as the recurrent laryngeal nerve, perforation of the esophagus or trachea, pseudoarthrosis, adjacent level disease , contraindication to MRI, Sami's Syndrome, vision loss, voice change, resulting in temporary or permanent dysfunction, even disability, paralysis, and . The recovery of this type of surgery was also mentioned. The chances for improvement of the related cervical radiculopathy symptomology in the bilateral upper extremities at one year is 70-80%. The chances of improvement of unrelated local neck pain is 50%. This includes but is not limited to reasonable expectations for the treatment of myelopathy involving the surgical decompression of the cervical spinal cord; which will stop the progression of the patient's condition but cannot guarantee improvements in any associated physical complaints. The patient verbalized understanding all the risks and benefits, knowing that it is impossible to predict or guarantee every surgical outcome; and would like to proceed with the above discussed procedure anyways. Surgery is scheduled for 06/02/2016 The standard [facility] preoperative screening tests, medicine restrictions, and logistical protocols apply. Any preoperative testing is within normal limits to undergo the above discussed procedure unless otherwise noted in the medical record. PREOPERATIVE NOTE: Discussed patient's perioperative care with attending Neurosurgeon Dr. Zuleta requiring postoperative supervision for 24-72 hours at home & the patient must also obtain a working CPAP to use as directed postoperatively in order for us to proceed with surgery as planned on 2016. [facility] Dr. Catrachito Wilson M.D. agreed to manage the patient's postoperative pain & spasm; but we will have the patient one prescription for diazepam at discharge. Clinical Guidelines (Reviewed, no changes:Last detailed document date:) Medications (added, continued or stopped this visit): Start Date Medication Directions Stop Date citalopram 40 mg tablet take 1 tablet by oral route every day clonidine HCl 0.1 mg tablet take 1 tablet by oral route 2 times every day hydrocodone 5 mg-acetaminophen 325 mg tablet take 1 tablet by oral route every 6 hours as needed for pain levocetirizine 5 mg tablet take 1 tablet by oral route every day in the evening omeprazole 20 mg capsule,delayed release take 1 capsule by oral route every day before a meal quetiapine 50 mg tablet take 1 tablet by oral route 2 times every day Sinemet 10 mg-100 mg tablet take 1 tablet by oral route 3 times every day 07/24/2015 tamsulosin 0.4 mg capsule take 1 capsule by oral route every bedtime 11/28/2015 Trokendi XR 50 mg capsule, extended release take 1 capsule by oral route every day Counseling/Educational Factors: Counseling / educational factors reviewed. Counseling / educational factors reviewed. This is a visit of 60 minutes. 50 minutes were spent counseling. The patient was checked out at 4:41 PM. This document may have been created using voice recognition software or other electronic means and may contain inadvertent core winder errors. Provider: Jeronimo VINES 05/28/2016 04:44 PM Document generated by: Jeronimo Lentz 05/28/2016 04:44 PM CC Providers: Carlo Arredondo [address] [place] [address] Chip Jones [address] [facility] [address] [place] [address] Sumit [place] [address] [place] [id number]- Carlo Arredondo [address] [place] [address] [address] [place] [address] [address]x del rosario s Debbi valles g Hospital Course: Hospital Course: The patient was admitted through same day surgery and subsequently underwent a C5-6 & C6-7 anterior cervical discectomy and fusion, with allograft bone 2, absent anterior cervical plating from C5-7. The patient tolerated the procedure well. The patient was then was transferred to PACU and then to the [facility] floor. The patient was admitted for postoperative pain control, PT/OT, supervised for chronic pain management & ROSEANNA co-morbidities with inpatient nurse monitoring, continuous pulse oximetry, and discharge planning. The Patient's overnight course was within normal limits. Currently the patient has complaints of mild surgical site & posterior referred myofascial inflammatory pain/spasm adequately controlled with her current postoperative by mouth analgesics & muscle relaxants. The patient effectively used CPAP during hospital course. There is significant improvement of the patient's residual cervical myelopathy related symptoms especially with regards to his bilateral upper extremities. The patient denies headache, severe sore throat or dysphagia, chest pain, shortness of breath, abdominal pain, nausea, vomiting, constipation, diarrhea, or any new onset &/or location of pain, weakness or paresthesias aside from the surgical site. PHYSICAL EXAM This is a well developed, well nourished, obese male who is alert, cooperative, and appears to be in no acute distress with a pleasant affect & euthymic mood. Exam of the head is normocephalic. PERRL, EOMI, without facial droop, hearing grossly intact, nostrils patent, oral cavity and pharynx normal. Voice is within normal limits Exam or the heart reveals regular rate and rhythm without audible murmurs The lungs are clear to auscultation bilaterally. The abdomen is non- tender and non-distended. Exam of the anterior cervical surgical wound reveals that it is clean, dry, and intact; without signs of infection, inflammation, and/or hematoma. There will be a rates of output less than 30 mL from the surgical drain in an 8 hour period prior to discharge. Gross exam of the extremities reveals strength & sensation are grossly intact within the patient's normal baseline limits except improve sales operations lead strength 5-/5 bilaterally. The patient was eventually able to get out of bed and ambulate within acceptable limits. Therapy services made recommendations for disposition. Flatus was appreciated and the patient was able to void without significant difficulty. The pain was gradually under control. The patient was afebrile on discharge. The patient's incision(s) was clean, dry and intact. The dressing was changed to the Surgeon's specifications. The output from the wound drain will be less then 30cc's in an 8 hour period prior to discharge and then the drain will be removed. The patient progressed well with rehabilitation and was subsequently discharged to home in stable condition. The patient was given specific instructions with he verbalized understanding including but not limited to using his CPAP at all times when indicated, we discussed when to recognize oversedation, and ordered the patient to call his Community Marketing Coordinator at [facility] for any of his postoperative pain management requirements. The patient promised that he would have postoperative supervision at home for at least 48-72 hours after hospital discharge & this will be reconfirmed by the hospital staff prior to discharge. The patient verbally affirmed understanding when given clear instruction regarding the postoperative care and follow-up including but not limited to seeking immediate medical attention for chest pain, shortness of breath, oversedation, a temperature greater than 101.5 F, severe uncontrolled pain or weakness, loss of bowel or bladder function, choking, lots or drainage, pus discharge or constipation. All questions were answered. Upright lateral C-spine x-ray performed today June 11 2016 - IMPRESSION: Status post C5-6 & C6-7 anterior cervical discectomy and fusion, with allograft bone 2, & anterior cervical plating from C5-7 with stable fusion construct & good instrumentation alignment. Disposition: Home in stable condition with recommended supervision for 48-72 hours at home postoperatively. Follow-up Plan: 1. Follow-up with physician fundraising assistant in outpatient neurosurgical clinic in 1 week for wound check. 2. Follow-up with [facility] as scheduled or needed. Carbidopa/Levodopa 10-100 mg (Sinemet 10-100 mg) 1 Each Tablet 1 TABLET PO TID ( Reported) Citalopram (Citalopram) 40 Mg Tablet 40 MG PO DAILY (Reported) Clonidine (Clonidine) 0.1 Mg Tablet 0.1 MG PO BID (Reported) Diazepam (Diazepam) 5 Mg Tablet 5 MG PO EVERY 8 HOURS PRN PRN For Spasm Hydrocodone-Acetaminophen 5-325 mg (Hydrocodone-Acetaminophen 5-325 mg) 1 Each Tablet 1 TABLET PO Q6H PRN PRN For Pain (Reported) Levocetirizine Dihydrochloride (Levocetirizine Dihydrochloride) 5 Mg Tablet 5 MG PO DAILY (Reported) Omeprazole (Omeprazole) 20 Mg Capsule.dr 20 MG PO DAILY (Reported) Quetiapine Fumarate (Quetiapine Fumarate) 50 Mg Tablet 50 MG PO BID (Reported) Tamsulosin (Flomax) 0.4 Mg Capsule 0.4 MG PO HS (Reported) Topiramate ER (Trokendi XR) 50 Mg Capsule 50 MG PO DAILY (Reported) Discharge Medications: Agreement with [facility] ([facility]) and all of the patient's postoperative pain control. We will request that hospital staff to verify the patient has adequate amount of medication available until follow-up with [facility]. We also gave the patient a one time prescription for diazepam for posterior cervical pain/spasm is authorized by the patient [facility] Provider & after the patient verbalized clear understanding for medication use, at home supervision, recognition of oversedation, CPAP use whenever indicated, & to seek immediate medical attention if necessary. Attending Statement: All documentation reviewed & orders authorized by Dr. Eren Zuleta M.D. copies to: Carlo Arredondo MD, Scott PA-C Jun 11, 2016 09:56
--- NOTE | 2016-06-11 10:52 | DRSVH ---
PROCEDURE: X-RAY CERVICAL SPINE, 1 VIEW INDICATIONS: C5-7 ACDF TECHNIQUE: Single lateral view of the cervical spine acquired. COMPARISON: [facility], CR, XR CERVICAL SPINE 1VW, 06/10/2016, 8:57. FINDINGS: Bones: Recent ACDF C5-C6 and C6-C7 with hardware and bone grafts in expected position. Flowing anter ior osteophytes again noted at the C3-C4 level. Soft tissues: No prevertebral soft tissue swelling. IMPRESSION: Stable postsurgical changes with discectomy and anterior fusion at C5-C7. Dictated by: [facility] Interpreted: Nadja Bella MD on 06/11/2016 at 10:51 Transcribed by: AMBER on 06/11/2016 at 10:52 Approved by: Nadja Bella M.D. on 06/11/2016 at 12:08
--- NOTE | 2016-06-11 13:01 | NUR ---
Social Work - Initial Assessment/Discharge Data:See initial assessment. Pt is a 60 y/o male who was admitted on 06/10/16 for Cervical spondylosis with myelopathy per H&P. Pt's insurance is Medicare and [facility] supplemental and PCP is Carlo Arredondo MD. EMR Reviewed. Pt's readmission score not available. SW met with pt at bedside to discuss discharge planning, SW role explained. Pt is alert and oriented x3. Pt resides at home alone in a multilevel level home with internal steps where pt remains independent with basic ADLs. Pt does not drive and uses no equipment at baseline. Pt has no HH history and SNF history with [facility] in [facility], no longer open. Pt has not completed DPOA/ advanced directive paperwork. SW provided information to review and complete and requested a copy be returned to the hospital. Pt has no manager long term care care or VA benefits. SW followed up with pt re: recommendation for tub bench and handheld shower per PT note. Provided list of DME vendors and pt will follow up with them following discharge. Pt reports he will be staying with a friend following discharge during recovery and the home has no steps. Pt's friend to transport home at discharge. All updated and agreeable to plan. Assessment:Pt who resides at home alone and is independent at baseline. Plan:Pt to discharge to friend's house via POV with no needs. Pt will follow up with DME vendors regarding recommended bath bench and handheld shower. All updated and agreeable to plan. [place] Addendum: 06/11/16 at 1311 by RUEL CARRERA Amended: Links added.
--- NOTE | 2016-06-11 13:30 | NUR ---
discharged home with friend, went over discharge instructions with pt at length, he seemed to understand his precautions well. dressing changed and VICTOR HUGO drain removed. He has f/u appt with Jeronimo Lentz Jun 18
--- NOTE | 2016-06-11 14:32 | NUR ---
spiritual care: (late entry) pt agreeable for eucharistic visit
== END 2016-06-11 13:45 | disposition home or self-care (01) | DRG 473 ==
LOC: SAS 05:28 → OSC 14:48
PROVIDERS: ADMIT Neurological Surgery; ATTEND Neurological Surgery
PROC: 0RT30ZZ Resection of Cervical Vertebral Disc, Open Approach (ICD-10-PCS; 2016-06-10)
PROC: 0RG2070 Fusion of 2 or more Cervical Vertebral Joints with Autologous Tissue Substitute, Anterior Approach, Anterior Column, Open Approach (ICD-10-PCS; 2016-06-10)
PROC: 0RG20A0 Fusion of 2 or more Cervical Vertebral Joints with Interbody Fusion Device, Anterior Approach, Anterior Column, Open Approach (ICD-10-PCS; principal; 2016-06-10 07:30)
DX: M47.12 Other spondylosis with myelopathy, cervical region (principal); G47.30 Sleep apnea, unspecified